=== PATIENT | female | born 1980 | race Caucasian/White ===

== ENCOUNTER 2017-11-21 15:47 | Emergency (ER) | payer BC ==
[~2017-11-21] VITALS: Ht 157.5 cm; Wt 74.8 kg
[~2017-11-21 15:47] MED LIST: AUGMENTIN 875875 MG PO; CYMBALTA30 MG PO; FISH OIL 1,0001 EAC5; MELATONIN5 M1 PO; MOBIC7.5 MG PO; MULTIVITAMINS1 EAC7; NEURONTIN 300300 M1 PO; NEURONTIN600 MG PO; NORCO 5-325 TA1 EACH PO; PERCOCET 5-3251 EACH PO; VOLTAREN GEL 1100 G2 TOP; WELLBUTRIN SR100 MG PO; ZOFRAN ODT4 MG DISSOLVE
[2017-11-21] MEDS ORDERED: CELEXA10 MG PO (15:59)
[2017-11-21] MEDS ORDERED: TRAMADOL 50 MG50 MG PO (16:00)
[2017-11-21] MEDS ORDERED: PREDNISONE 20 M20 M1 PO (16:39)
[2017-11-21 17:42] LABS: ABSOLUTE BASOPHILS 0.1 thou/uL (0.0-0.2); ABSOLUTE EOSINOPHILS 0.1 thou/uL (0.0-0.7); ABSOLUTE LYMPHOCYTES 1.6 thou/uL (0.8-5.3); ABSOLUTE MONOCYTES 0.6 thou/uL (0.0-1.2); ABSOLUTE NEUTROPHILS 5.4 thou/uL (1.6-8.1); BASOPHILS 0.7 %; EOSINOPHILS 1.5 %; HEMATOCRIT 38.7 % (37.0-47.0); LYMPHOCYTES 20.8 %; MCH 30.9 pg (26.0-34.0); MCHC 33.6 g/dL (28.0-37.0); MCV 91.8 fL (80.0-100.0); MONOCYTES 7.8 %; MPV 8.4 fl. (7.2-11.1); NUCLEATED RBCS 0 /100WBC; PLATELET COUNT* 246 thou/uL (150-400); POLYS 69.2 %; RBC 4.22 mil/uL (4.20-5.00); RDW-CV 12.4 % (10.5-14.5); WBC 7.9 thou/uL (4.0-11.0)
[2017-11-21 18:05] LABS: ALBUMIN 3.7 g/dL (3.4-5.0); ALKALINE PHOSPHATASE 71 U/L (46-116); ANION GAP 6 mmol/L (7-16); BUN 8 mg/dL (7-18); CALCIUM 8.5 mg/dL (8.5-10.1); CHLORIDE 106 mmol/L (98-107); CO2 27 mmol/L (21-32); CREATININE 0.7 mg/dL (0.6-1.3); GLUCOSE 94 mg/dL (70-99); SGOT 12 U/L (15-37); SGPT 17 U/L (30-65); SODIUM 139 mmol/L (136-145); TOTAL BILIRUBIN 0.3 mg/dL (<0.1-1.0); TOTAL PROTEIN 6.7 g/dL (6.4-8.2); TROPONIN-I LEVEL <0.06 ng/mL (<0.06)
[2017-11-21 18:35] VITALS: BP 115/72
--- NOTE | 2017-11-22 17:07 | EKG ---
[place] [address] ELECTROCARDIOGRAM REPORT Name: LESLIE JERRY Room: [facility]#: [id number] Admission: 11/21/17 Attend Phys: Discharge: 11/21/17 Date of : 82 Report #: [id number] THIS REPORT FOR: //name// [facility] ED Test Date: 2017-11-21 Test Time: 17:19:53 Pat Name: LESLIE JERRY Department: Room: Gender: F Office Executive: [place] : 1980 Requested By: Katia Melendez Order Number: [id number] MD: Maxim Fu Measurements Intervals Dorena Rate: 65 P: 16 SC: 136 QRS: 36 QRSD: 87 T: 25 QT: 413 QTc: 430 Interpretive Statements Sinus rhythm Compared to ECG 02/03/2017 12:07:48 T-wave abnormality no longer present Electronically Signed On 11-22-2017 17:07:45 CDT by Maxim Fu [email or web address] <ELECTRONICALLY SIGNED> By: Maxim Fu MD, [facility] 11/22/17 170 171 18 Maxim Fu MD, [facility] /EPI
== END 2017-11-21 18:37 | disposition home or self-care (01) ==
LOC: M.ERS 15:47
PROVIDERS: Nurse Practitioner Family
DX: J45.909 Unspecified asthma, uncomplicated (principal); Z88.5 Allergy status to narcotic agent

== ENCOUNTER 2020-01-26 13:11 | Emergency (ER) | payer BC ==
[~2020-01-26] VITALS: Ht 157.5 cm; Wt 74.8 kg
[~2020-01-26 13:11] MED LIST changes: +CELEXA10 MG PO; +PREDNISONE 20 M20 M1 PO; +TRAMADOL 50 MG50 MG PO
[2020-01-26] MEDS ORDERED: ANIMAL SHAPES1 EAC2 PO (13:20)
[2020-01-26 13:58] LABS: ABSOLUTE BASOPHILS 0.1 thou/uL (0.0-0.2); ABSOLUTE EOSINOPHILS 0.2 thou/uL (0.0-0.7); ABSOLUTE LYMPHOCYTES 1.7 thou/uL (0.8-5.3); ABSOLUTE MONOCYTES 0.5 thou/uL (0.0-1.2); ABSOLUTE NEUTROPHILS 4.4 thou/uL (1.6-8.1); BASOPHILS 0.9 %; EOSINOPHILS 2.5 %; HEMATOCRIT 38.2 % (37.0-47.0); HEMOGLOBIN 13.1 gm/dL (12.0-15.0); LYMPHOCYTES 24.4 %; MCHC 34.4 g/dL (28.0-37.0); MONOCYTES 7.6 %; MPV 9.7 fl. (7.2-11.1); NUCLEATED RBCS 0 /100WBC; PLATELET COUNT* 244 thou/uL (150-400); POLYS 64.6 %; RDW-CV 12.3 % (10.5-14.5); WBC 6.8 thou/uL (4.0-11.0)
[2020-01-26 14:06] LABS: APTT 24.9 Seconds (25.0-31.3); PROTIME 10.2 Seconds (9.20-11.50)
[2020-01-26 14:52] LABS: CALCIUM 7.8 mg/dL (8.5-10.1); CREATININE 0.8 mg/dL (0.6-1.3); POTASSIUM 3.8 mmol/L (3.5-5.1)
[2020-01-26 14:56] LABS: ALBUMIN 3.7 g/dL (3.4-5.0); TOTAL BILIRUBIN 0.2 mg/dL (<0.1-1.0); TOTAL PROTEIN 6.6 g/dL (6.4-8.2)
[2020-01-26] MEDS ORDERED: TYLENOL WITH CO1 TA1 PO (16:33)
[2020-01-26 16:44] VITALS: BP 131/81
== END 2020-01-26 16:44 | disposition home or self-care (01) ==
LOC: M.ERS 13:11
PROVIDERS: Physician Assistant
DX: N88.9 Noninflammatory disorder of cervix uteri, unspecified (principal); E83.51 Hypocalcemia; J45.909 Unspecified asthma, uncomplicated